=== PATIENT | female | born 1935 | race Caucasian/White ===

== ENCOUNTER 2016-08-12 18:33 | Emergency (ER) | payer MEDICARE ==
[~2016-08-12 18:33] MED LIST: BENTYL10 M1 PO; BENTYL10 MG PO; FISH OIL 1,0001 EA10 PO; GAS-X125 M1 PO; IMITREX4 MG/0.51 SQ; PRILOSEC OTC20 MG PO; SYNTHROID50 MCG PO; XANAX0.5 MG PO
[2016-08-12] MEDS ORDERED: DEPO-MEDRO20 MG/1 ML IJ (19:57)
[2016-08-12] MEDS ORDERED: XANAX0.5 M1 PO (19:58)
[2016-08-12] MEDS ORDERED: NORCO 5-325 TA1 EACH PO (23:08)
== END 2016-08-12 23:11 ==
LOC: EDMED 18:33
DX: J40 Bronchitis, not specified as acute or chronic (principal); E03.9 Hypothyroidism, unspecified; M81.0 Age-related osteoporosis without current pathological fracture; Z88.5 Allergy status to narcotic agent; Z88.8 Allergy status to other drugs, medicaments and biological substances; Z79.890 Hormone replacement therapy; Z79.899 Other long term (current) drug therapy